=== PATIENT | male | born 2000 | race Two or more races ===

== ENCOUNTER 2018-04-22 10:21 | Emergency (ER) | payer OTHER ==
[2018-04-22] MEDS ORDERED: KETOROLAC TROMETHAMINE 60 MG/2 ML SDV IM ONE (11:18)
--- NOTE | 2018-04-22 11:18 | ER Document Report ---
ED General - General Chief Complaint: Testicular Swelling Stated Complaint: TESTICULAR PAIN/SWOLLEN Time Seen by Provider: 04/22/18 10:45 TRAVEL OUTSIDE OF THE [place] IN LAST 30 DAYS: No - HPI Notes: Patient is a 17-year-old male that presents to the emergency department for chief complaint of right testicular pain. Patient states that sharp pain in his right testicle that is nonradiating and constant in nature. The pain has been constant for 1 week. 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 He denies any known injury to the area. He denies any penile discharge. He is sexually active and reports always using condoms. He denies any concern for STD or history of STD. He denies any fever, chills, abdominal pain, nausea or vomiting. He has had some relief with Vicks vapor rub. The pain is aggravated with any movement or palpation. Past Medical History: Negative Past Surgical History: Negative Social History: Daily tobacco. 3-4 alcoholic beverages weekly. Denies drug use Family History: Reviewed and noncontributory for presenting illness Allergies: Reviewed, see documented allergy list. REVIEW OF SYSTEMS: CONSTITUTIONAL : No fever No chills No diaphoresis No recent illness EENT: No vision changes No congestion No sore throat CARDIOVASCULAR: No chest pain No palpitations RESPIRATORY: No shortness of breath No cough No difficulty breathing GASTROINTESTINAL: No abdominal pain No nausea No vomiting No diarrhea GENITOURINARY: Right testicular pain No dysuria No hematuria No difficulty urinating MUSCULOSKELETAL: No back pain No leg pain No arm pain SKIN: No rashes No lesions LYMPHATIC: No swollen, enlarged glands. NEUROLOGICAL: No lightheadedness No headache No weakness No paresthesias PSYCHIATRIC: No anxiety No depression PHYSICAL EXAMINATION: Vital signs reviewed, nursing noted reviewed. GENERAL: Well-appearing, well-nourished and in no acute distress. HEAD: Atraumatic, normocephalic. EYES: Eyes appear normal, extraocular movements intact, sclera anicteric, conjunctiva are normal. ENT: nares patent, oropharynx clear without exudates. Moist mucous membranes. NECK: Normal range of motion, supple without lymphadenopathy LUNGS: Breath sounds clear to auscultation bilaterally and equal. No wheezes rales or rhonchi. HEART: Regular rate and rhythm without murmurs ABDOMEN: Soft, nontender, normoactive bowel sounds. No rebound, guarding, or rigidity. No masses appreciated. : Normal cremasteric reflex bilaterally. Left testicle lower lie than right. Posterior right testicular tenderness. No inguinal hernia bilaterally. No penile discharge or lesions. No scrotal erythema, crepitus or edema EXTREMITIES: Nontender, good range of motion, no pitting or edema. NEUROLOGICAL: No focal neurological deficits. Moves all extremities spontaneously Motor and sensory grossly intact on exam. PSYCH: Normal mood, normal affect. SKIN: Warm, Dry, normal turgor, no rashes or lesions noted on exposed skin - Related Data Allergies/Adverse Reactions: No Known Allergies Allergy (Verified 04/22/18 10:21) Past Medical History - Social History Smoking Status: Current Every Day Smoker Chew tobacco use (# tins/day): No Frequency of alcohol use: None Family History: Reviewed & Not Pertinent Patient has suicidal ideation: No Patient has homicidal ideation: No Renal/ Medical History: Denies: Hx Peritoneal Dialysis Physical Exam - Vital signs Vitals: Temp Pulse Resp BP Pulse Ox 98.0 F 83 16 126/76 H 100 04/22/18 10:24 04/22/18 10:24 04/22/18 10:24 04/22/18 10:24 04/22/18 10:24 Course - Re-evaluation Re-evalutation: 04/22/18 11:18 Vitals reviewed. Nursing notes reviewed. Patient given Toradol for symptom medic management. He has focal tenderness over his posterior testicle concerning for possible epididymitis or orchitis. Patient will have ultrasound for further evaluation. 04/22/18 12:51 Laboratory 04/22/18 04/22/18 04/22/18 10:55 11:00 11:00 WBC 8.1 RBC 5.21 Hgb 15.6 Hct 45.0 MCV 86 MCH 29.9 MCHC 34.7 RDW 13.7 Plt Count 241 Seg Neutrophils % 69.9 Lymphocytes % 22.7 Monocytes % 6.0 Eosinophils % 1.1 Basophils % 0.3 Absolute Neutrophils 5.7 Absolute Lymphocytes 1.8 Absolute Monocytes 0.5 Absolute Eosinophils 0.1 Absolute Basophils 0.0 Sodium 141.0 Potassium 4.5 Chloride 101 Carbon Dioxide 28 Anion Gap 12 BUN 11 Creatinine 0.87 Est GFR ( Amer) > 60 Est GFR (Non-Af Amer) > 60 Glucose 98 Calcium 9.7 Urine Color YELLOW Urine Appearance CLEAR Urine pH 7.0 Ur Specific [place] 1.017 Urine Protein NEGATIVE Urine Glucose (UA) NEGATIVE Urine Ketones NEGATIVE Urine Blood NEGATIVE Urine Nitrite NEGATIVE Urine Bilirubin NEGATIVE Urine Urobilinogen NEGATIVE Ur Leukocyte Esterase NEGATIVE Urine WBC (Auto) 2 Urine RBC (Auto) 1 Squamous Epi Cells Auto <1 Urine Mucus (Auto) RARE Urine Ascorbic Acid NEGATIVE Scrotum Ultrasound 04/22/18 10:44 IMPRESSION: 1. THE TAIL OF THE RIGHT EPIDIDYMIS IS THICKENED AND HETEROGENOUS WITH INCREASED BLOOD FLOW, CONSISTENT WITH EPIDIDYMITIS. 2. NORMAL TESTICULAR ULTRASOUND. NO EVIDENCE OF TESTICULAR MASS OR TORSION. Patient's lab work is unremarkable. Ultrasound is consistent with epididymitis. Patient was given Rocephin IM and will be started on doxycycline. He will follow with primary care for reevaluation in the next few days. He was given return precautions and verbalized understanding. - Vital Signs Vital signs: Temp Pulse Resp BP Pulse Ox 98.0 F 83 16 126/76 H 100 04/22/18 10:24 04/22/18 10:24 04/22/18 10:24 04/22/18 10:24 04/22/18 10:24 - Laboratory Result Diagrams: 04/22/18 11:00 04/22/18 11:00 Discharge - Discharge Clinical Impression: Epididymitis Condition: Stable Disposition: HOME, SELF-CARE Instructions: Epididymitis (OM) Additional Instructions: Please return to the emergency department if you have any worsening, or concern of your symptoms. Please return to the emergency department if you develop chest pain, difficulty breathing, severe abdominal pain, or ongoing vomiting. Please follow-up with your primary care physician in 2-3 days and any other recommended physicians. If prescribed, take all medications as directed. If you have any questions or concerns do not hesitate to return the emergency department for evaluation. [] Prescriptions: Doxycycline Hyclate 100 mg PO BID #20 capsule Referrals: [facility] [Provider Group] - Follow up in 1 week
[2018-04-22 11:36] LABS: APPEARANCE,URINE CLEAR; BILIRUBIN,URINE NEGATIVE (NEGATIVE); COLOR,URINE YELLOW; GLUCOSE, URINE NEGATIVE (NEGATIVE); KETONES,URINE NEGATIVE (NEGATIVE); LEUKOCYTE ESTERASE,URINE NEGATIVE (NEGATIVE); NITRITE,URINE NEGATIVE (NEGATIVE); PROTEIN,URINE NEGATIVE (NEGATIVE); URINE SPECIFIC GRAVITY 1.017; UROBILINOGEN,URINE NEGATIVE mg/dL (<2.0)
[2018-04-22 11:36] LABS: ABSOLUTE EOSINOPHILS # (AUTO) 0.1 10^3/uL (0.0-0.6); ABSOLUTE LYMPHOCYTES (AUTO) 1.8 10^3/uL (0.5-4.7); ABSOLUTE MONOCYTES (AUTO) 0.5 10^3/uL (0.1-1.4); ABSOLUTE NEUT (AUTO) 5.7 10^3/uL (1.7-8.2); BASOPHILS % (AUTO) 0.3 % (0-2); EOSINOPHILS % (AUTO) 1.1 % (0-6); HEMOGLOBIN 15.6 g/dL (13.5-17.0); LYMPHOCYTES % (AUTO) 22.7 % (13-45); MEAN CORPUSCULAR HEMOGLOBIN 29.9 pg (27.0-33.4); MEAN CORPUSCULAR HGB CONC 34.7 g/dL (32.0-36.0); MEAN CORPUSCULAR VOLUME 86 fl (80-97); PLATELET COUNT 241 10^3/uL (150-450); RED BLOOD COUNT 5.21 10^6/uL (4.35-5.55); RED CELL DISTRIBUTION WIDTH 13.7 % (11.5-14.0); SEGMENTED NEUTROPHILS % (AUTO) 69.9 % (42-78); TOTAL CELLS COUNTED % (AUTO) 100 %; WHITE BLOOD COUNT 8.1 10^3/uL (4.0-10.5)
[2018-04-22 12:00] LABS: ANION GAP 12 (5-19); BLOOD UREA NITROGEN 11 mg/dL (7-20); CALCIUM 9.7 mg/dL (8.4-10.2); CARBON DIOXIDE 28 mmol/L (22-30); CHLORIDE 101 mmol/L (98-107); GLUCOSE 98 mg/dL (75-110); POTASSIUM 4.5 mmol/L (3.6-5.0)
--- NOTE | 2018-04-22 12:24 | RADIOLOGY REPORT (SQ) ---
EXAM DESCRIPTION: U/S SCROTUM W/DOPPLER COMPLETED DATE/TIME: 04/22/2018 11:58 am REASON FOR STUDY: Swelling/pain COMPARISON: None. TECHNIQUE: Static and realtime sanchez scale imaging of the scrotum and testes. Selected color Doppler and spectral images recorded to document blood flow. LIMITATIONS: None. FINDINGS: RIGHT: TESTICLE: Normal size. Normal echotexture. Normal blood flow. No mass. EPIDIDYMIS: The tail of the epididymis is thickened and heterogenous with increased blood flow on Dop pler imaging. HYDROCELE OR VARICOCELE: No. HERNIA OR EXTRA-TESTICULAR MASS: No. OTHER: No other significant finding. LEFT: TESTICLE: Normal size. Normal echotexture. Normal blood flow. No mass. EPIDIDYMIS: Normal. HYDROCELE OR VARICOCELE: No. HERNIA OR EXTRA-TESTICULAR MASS: No. OTHER: No other significant finding. IMPRESSION: 1. THE TAIL OF THE RIGHT EPIDIDYMIS IS THICKENED AND HETEROGENOUS WITH INCREASED BLOOD FLOW, CONSISTE NT WITH EPIDIDYMITIS. 2. NORMAL TESTICULAR ULTRASOUND. NO EVIDENCE OF TESTICULAR MASS OR TORSION. TECHNICAL DOCUMENTATION: JOB ID: [id number] [email or web address] All Rights Reserved Reading location - IP/workstation name: [email or web address]
[2018-04-22] MEDS ORDERED: LIDOCAINE 1% INJ-PF (10 MG/ML) 30 ML SDV NEB ONE (12:52)
[2018-04-22] MEDS ORDERED: CEFTRIAXONE INJ 250 MG VIAL IM ONE (12:52)
[2018-04-22 13:02] LABS: CHLAM PCR DETECTED (NOT DETECT); GON PCR NOT DETECTED (NOT DETECT)
[2018-04-22 13:13] VITALS: BP 121/73
== END 2018-04-22 13:13 | disposition home or self-care (01) ==
LOC: ER 10:21
DX: N45.1 Epididymitis (principal); N50.811 Right testicular pain; F17.200 Nicotine dependence, unspecified, uncomplicated
CPT/HCPCS: 99284; 96372; 36415; 85025; 80048; 81001; 87491; 87591; 76870; 93976; J1885; J3490; J0696